=== PATIENT | female | born 1980 | race Caucasian/White ===

== ENCOUNTER 2023-12-15 14:07 | Emergency (ER) | payer OTHER, SELFPAY ==
--- NOTE | 2023-12-15 14:13 | ED.URI ---
HPI - URI/Sore Throat General Chief Complaint: Upper Respiratory Infection Stated Complaint: lt ear pain, congestion Time Seen by Provider: 12/15/23 14:20 Source: patient, RN notes reviewed and old records reviewed Mode of arrival: ambulatory Limitations: no limitations History of Present Illness HPI Narrative: 43-year-old female presents to the [facility] with complaints of congestion for 5 days. States that on Saturday she had 100.7 fever. Started with some left ear pain 3 days ago. Has tried [id number] cold medicine, Motrin and Tylenol. States that her 3 children keep bringing home virus is Treatments prior to arrival: acetaminophen, ibuprofen and cold medicine Related Data Home Medications Medication Instructions Recorded Confirmed buspirone 5 mg tablet 15 mg PO DAILY 12/15/23 12/15/23 Allergies Allergy/AdvReac Type Severity Reaction Status Date / Time adhesive AdvReac Mild Rash Verified 12/15/23 14:19 Review of Systems Review of Systems: All systems reviewed & are unremarkable except as noted in HPI and below Constitutional: Constitutional: Reports no additional constitutional complaints Eyes: Eyes: Reports no additional eye complaints ENT: Reports as per HPI, Reports otalgia and Reports nasal congestion Cardiovascular: Cardiovascular: Reports no additional cardiovascular complaints, Denies chest pain and Denies dyspnea Respiratory: Respiratory: Reports no additional respiratory complaints, Denies chest congestion, Denies cough and Denies dyspnea Gastrointestinal: Gastrointestinal: Reports no additional gastrointestinal complaints, Denies abdominal pain, Denies nausea and Denies vomiting Musculoskeletal: Musculoskeletal: Reports no additional musculoskeletal complaints Integumentary/Breasts: Skin/Breast: Reports system reviewed and no additional complaints, except as docu Neurologic: Reports system reviewed and no additional complaints, except as documented Psychiatric: Psychiatric: Reports no additional psychiatric complaints Allergic/Immunologic: Allergic/Immunologic: Reports no additional allergic/immunologic complaints [facility] Family History Family History Grandparent Malignant neoplasm of prostate Family history of malignant neoplasm of cervix Family history of malignant neoplasm of esophagus Family history of malignant neoplasm of urinary bladder Other Family history of malignant neoplasm of breast Social History Social History Smoking status: Never smoker Alcohol intake: current Comments At the time of my signature, I reviewed and agree with the nursing past medical, surgical, social, and family history. There is no relevant family history pertinent to the patient complaint. Exam Const: General: cooperative, healthy appearing, comfortable, no acute distress, well developed, alert and well nourished Nutritional Appearance: well nourished Orientation/consciousness: patient oriented x3 Limitations: no limitations HENMT: Head: normal to inspection Ears: hearing grossly normal bilaterally, external ears normal, EAC's normal, mastoids normal, no periauricular adenopathy and TM abnormal bulging on the left and erythematous on the left; not perforated Face/Nose/Sinus: Normal external nose present, normal facial exam and face symmetric Face and sinus: normal facial exam and face symmetric Mouth: Yes Normal oral and palatal mucosa present, Yes lip normal and Yes tongue normal Throat: uvula midline, abnormal tonsil bilateral exudates, hypertrophy 2+ and crypts; no erythema, postnasal drainage and no uvular edema Eyes: General: appearance normal, both eyes and all related structures Alignment and Position: alignment normal Periorbital: periorbital findings normal Neck: Neck: normal visual inspection, full ROM, no lymphadenopathy and no meningeal signs Chest: Chest palpat
[2023-12-15 14:26] VITALS: BP 112/52; PULSE 69; RESP 17; TEMP 37; O2SAT 100
[2023-12-15 14:48] LABS: EDSTREPNEGPOS1 Negative (Negative)
== END 2023-12-15 14:43 | disposition home or self-care (01) ==
PROVIDERS: Emergency Provider Nurse Practitioner; PCP Internal Medicine
DX: H66.92 Otitis media, unspecified, left ear (principal); J06.9 Acute upper respiratory infection, unspecified; F41.9 Anxiety disorder, unspecified; F32.A Depression, unspecified; Z86.16 Personal history of COVID-19
CPT/HCPCS: 87081; 87880; 99213; G0463